=== PATIENT | male | born 1965 | race Caucasian/White ===

== ENCOUNTER 2020-11-09 20:54 | Emergency (ER) | payer OTHER ==
[~2020-11-09 20:54] MED LIST: CATAPRES 0.1MG0.1 MG PO; DESYREL 50 MG T50 MG PO; IBUPROFEN800 MG PO; LIORESAL TAB 1010 MG PO; NAPROSYN500 MG PO; NORVASC5 MG PO; PANTOPRAZOLE SO40 MG PO; ROBAXIN 750 MG750 MG PO; ZOFRAN4 MG PO
[2020-11-09 22:05] LABS: HEMOGLOBIN 14.6 gm/dl (14.0-17.5); RED BLOOD COUNT 4.84 M/UL (4.20-5.50); WHITE BLOOD COUNT 13.4 K/UL (4.5-11.0)
[2020-11-09 22:28] LABS: BUN/CREATININE RATIO 8 (0-10)
== END 2020-11-09 23:25 | disposition home or self-care (01) ==
LOC: ER1 20:54
PROVIDERS: Family Medicine
DX: F10.10 Alcohol abuse, uncomplicated (principal); R03.0 Elevated blood-pressure reading, without diagnosis of hypertension; R05 Cough; R41.82 Altered mental status, unspecified; R74.01 Elevation of levels of liver transaminase levels; Z88.0 Allergy status to penicillin; Z79.899 Other long term (current) drug therapy
CPT/HCPCS: 71045; 80053; 82550; 82553; 83735; 83874; 84439; 84443; 84484; 85025; 93005; 99284